=== PATIENT | female | born 1990 | race Caucasian/White ===

== ENCOUNTER → 2020-01-21 | Outpatient (CLI) | payer OTHER | END | disposition home or self-care (01) | LOC: US 11:00 | DX: Z34.01 Encounter for supervision of normal first pregnancy, first trimester (principal); Z3A.15 15 weeks gestation of pregnancy; Z33.1 Pregnant state, incidental ==

== ENCOUNTER → 2020-03-19 | Outpatient (CLI) | payer OTHER | END | disposition home or self-care (01) | LOC: US 03-18 15:00 | DX: Z34.02 Encounter for supervision of normal first pregnancy, second trimester (principal); Z3A.23 23 weeks gestation of pregnancy ==

== ENCOUNTER → 2020-03-31 | Outpatient (CLI) | payer OTHER | END | disposition home or self-care (01) | LOC: US 03-30 15:00 | PROVIDERS: ATTEND Obstetrics & Gynecology | DX: O32.1XX0 Maternal care for breech presentation, not applicable or unspecified (principal); Z3A.25 25 weeks gestation of pregnancy ==

== ENCOUNTER → 2020-05-12 | Outpatient (CLI) | payer OTHER | END | disposition home or self-care (01) | LOC: US 10:30 | PROVIDERS: ATTEND Nurse Practitioner Women's Health | DX: Z34.03 Encounter for supervision of normal first pregnancy, third trimester (principal); Z3A.28 28 weeks gestation of pregnancy ==

== ENCOUNTER → 2020-05-29 | Outpatient (CLI) | payer OTHER | END | disposition home or self-care (01) | LOC: US 15:25 | PROVIDERS: ATTEND Nurse Practitioner Women's Health | DX: Z34.03 Encounter for supervision of normal first pregnancy, third trimester (principal); Z3A.32 32 weeks gestation of pregnancy ==

== ENCOUNTER → 2020-06-02 | Outpatient (CLI) | payer OTHER | END | disposition home or self-care (01) | LOC: US 15:00 | PROVIDERS: ATTEND Obstetrics & Gynecology | DX: Z34.03 Encounter for supervision of normal first pregnancy, third trimester (principal); Z3A.34 34 weeks gestation of pregnancy ==

== ENCOUNTER → 2020-06-09 | Outpatient (CLI) | payer OTHER | END | disposition home or self-care (01) | LOC: US 12:30 | PROVIDERS: ATTEND Obstetrics & Gynecology | DX: Z34.03 Encounter for supervision of normal first pregnancy, third trimester (principal); Z3A.35 35 weeks gestation of pregnancy ==

== ENCOUNTER → 2020-06-12 | Outpatient (CLI) | payer OTHER | END | disposition home or self-care (01) | LOC: US 13:57 | PROVIDERS: ATTEND Obstetrics & Gynecology | DX: Z34.03 Encounter for supervision of normal first pregnancy, third trimester (principal); Z3A.36 36 weeks gestation of pregnancy ==

== ENCOUNTER → 2020-06-16 | Outpatient (CLI) | payer OTHER | END | disposition home or self-care (01) | LOC: US 13:00 | PROVIDERS: ATTEND Obstetrics & Gynecology | DX: O43.103 Malformation of placenta, unspecified, third trimester (principal); Z3A.36 36 weeks gestation of pregnancy ==

== ENCOUNTER → 2020-06-23 | Outpatient (CLI) | payer OTHER | END | disposition home or self-care (01) | LOC: US 04:22 | PROVIDERS: ATTEND Obstetrics & Gynecology | DX: Z34.03 Encounter for supervision of normal first pregnancy, third trimester (principal); Z3A.37 37 weeks gestation of pregnancy ==

== ENCOUNTER → 2020-07-07 | Outpatient (CLI) | payer OTHER | END | disposition home or self-care (01) | LOC: US 12:00 | PROVIDERS: ATTEND Obstetrics & Gynecology | DX: Z34.03 Encounter for supervision of normal first pregnancy, third trimester (principal); Z3A.39 39 weeks gestation of pregnancy ==

== ENCOUNTER → 2020-07-14 | Outpatient (CLI) | payer OTHER | END | disposition home or self-care (01) | LOC: US 13:30 | PROVIDERS: ATTEND Obstetrics & Gynecology | DX: O43.893 Other placental disorders, third trimester (principal); Z3A.40 40 weeks gestation of pregnancy ==